=== PATIENT | female | born 1990 | race Caucasian/White ===

== ENCOUNTER → 2021-08-25 | Outpatient (CLI) | payer OTHER ==
[~2021-08-25] MED LIST: ACET500 PO; ALBU90OI INH; AMOX500 PO; Amoxil400 MG/5 M PO; CEPH250A; CEPH500 PO; CIPR500 PO; CODACE30 PO; CYCL10 PO; DAY TIME COLD-237 ML; DIAZ5 PO; DIPATR PO; FAMO40 PO; FERR325 PO; HYDACE25S PR; IBUP400 PO; IBUP600 PO; IBUP800; IBUP800 PO; MEDICAL MARIJUANA; MULVITMINE PO; NAPR500 PO; ONDA4 PO; ONDA4ODT MM; OXYACE5T PO; PENVK500 PO; PHENA100 PO; PROACE100 PO; PROCODE120 PO; PROM25 PO; PSEU120ER PO; Permethrin60 GM TOP; RXOXYACE PO; RXPROACE PO; SERT50 PO; TOBR.3OPSO OP; TRAM50 PO; Zofran8 MG PO; [UNRECOGNIZED DRUG - OTHER]
[2021-08-26 15:12] LABS: HPV 16 Negative (Negative); HPV 18 Negative (Negative); HPV OTHER HR TYPES Negative (Negative)
== END | disposition home or self-care (01) ==
LOC: LAB SHORT 14:52
PROVIDERS: Obstetrics & Gynecology
DX: Z12.4 Encounter for screening for malignant neoplasm of cervix (principal)
CPT/HCPCS: 87624; G0123

== ENCOUNTER → 2022-06-11 | Outpatient (CLI) | payer OTHER ==
[2022-06-11 18:01] LABS: BASOPHILS ABSOLUTE AUTO 0.05 K/mm3 (0.00-0.23); BASOPHILS PERCENT AUTO 1 % (0-2); EOSINOPHILS ABSOLUTE AUTO 0.11 K/mm3 (0.00-0.68); EOSINOPHILS PERCENT AUTO 1 % (0-6); Hematocrit 38.7 % (33.0-51.0); Hemoglobin 13.2 g/dL (11.5-16.0); IMMATURE GRAN ABSOLUTE AUTO 0.04 K/mm3 (0.00-0.10); IMMATURE GRAN PERCENT AUTO 0 % (0-1); LYMPHOCYTES ABSOLUTE AUTO 1.67 K/mm3 (0.84-5.20); LYMPHOCYTES PERCENT AUTO 18 % (21-46); MONOCYTES ABSOLUTE AUTO 0.63 K/mm3 (0.16-1.47); MONOCYTES PERCENT AUTO 7 % (4-13); Mean Corpuscular HGB 31.2 pg (26.0-34.0); Mean Corpuscular HGB Conc 34.1 g/dL (31.5-36.5); Mean Corpuscular Volume 92 fL (80-100); Mean Platelet Volume 9.2 fL (9.1-12.4); NEUTROPHILS ABSOLUTE AUTO 6.72 K/mm3 (1.96-9.15); NEUTROPHILS PERCENT AUTO 73 % (41-73); Platelet Count 317 K/mm3 (150-400); RDW Coefficient Variation 11.9 % (11.7-14.2); RDW Standard Deviation 39.8 fL (35.1-46.3); Red Blood Cell Count 4.23 M/mm3 (3.80-5.20); White Blood Cell Count 9.22 K/mm3 (4.00-11.30)
[2022-06-11 18:04] LABS: Bun/Creatinine Ratio 15.5 (12.0-20.0); Creatinine, Blood 0.71 mg/dL (0.40-1.00); Potassium, Blood 3.4 mmol/L (3.5-5.5)
== END | disposition home or self-care (01) ==
LOC: LAB SHORT 17:56
PROVIDERS: Physician Assistant Surgical
DX: R55 Syncope and collapse (principal)
CPT/HCPCS: 80048; 85025

== ENCOUNTER 2022-09-25 13:42 | Emergency (ER) | payer SELFPAY ==
[~2022-09-25] VITALS: Ht 162.6 cm; Wt 68.0 kg
[2022-09-25] MEDS ORDERED: PRENATAL TABLE1 EAC2 PO (14:19)
[2022-09-25 14:49] LABS: Influenza A, PCR NEGATIVE (NEGATIVE); Influenza B, PCR NEGATIVE (NEGATIVE); Resp Syncytial Virus, PCR NEGATIVE (NEGATIVE); SARS-Cov-2 (COVID-19) PCR, MMC NEGATIVE (NEGATIVE)
[2022-09-25] MEDS ORDERED: ALBU90OI INH ×2 (15:19→15:49)
[2022-09-25] MEDS ORDERED: Prednisone20 MG PO ×2 (15:19→15:49)
== END 2022-09-25 15:35 | disposition home or self-care (01) ==
LOC: ER 13:42
PROVIDERS: Physician Assistant
DX: O99.512 Diseases of the respiratory system complicating pregnancy, second trimester (principal); O99.332 Smoking (tobacco) complicating pregnancy, second trimester; J98.01 Acute bronchospasm; F17.200 Nicotine dependence, unspecified, uncomplicated; Z3A.24 24 weeks gestation of pregnancy; Z88.5 Allergy status to narcotic agent; Z88.2 Allergy status to sulfonamides; Z20.822 Contact with and (suspected) exposure to COVID-19
CPT/HCPCS: 0241U; 94640; 94664; 99283-25; J7512

== ENCOUNTER 2023-01-02 19:42 | Inpatient (IN) | payer SELFPAY ==
[2023-01-02] VITALS (7 sets, daily range): BP systolic 110–135; BP diastolic 59–76
[~2023-01-02] VITALS: Ht 165.1 cm; Wt 76.4 kg
[~2023-01-02 19:42] MED LIST changes: +PRENATAL TABLE1 EAC2 PO; +Prednisone20 MG PO
[2023-01-02] MEDS ORDERED: ASPI81CH PO (20:27)
[2023-01-02] MEDS ORDERED: FERSU300 PO (20:27)
[2023-01-02 20:28] LABS: BASOPHILS ABSOLUTE AUTO 0.03 K/mm3 (0.00-0.23); BASOPHILS PERCENT AUTO 0 % (0-2); EOSINOPHILS ABSOLUTE AUTO 0.07 K/mm3 (0.00-0.68); EOSINOPHILS PERCENT AUTO 1 % (0-6); Hematocrit 34.9 % (33.0-51.0); Hemoglobin 11.9 g/dL (11.5-16.0); IMMATURE GRAN ABSOLUTE AUTO 0.04 K/mm3 (0.00-0.10); IMMATURE GRAN PERCENT AUTO 1 % (0-1); LYMPHOCYTES ABSOLUTE AUTO 1.75 K/mm3 (0.84-5.20); LYMPHOCYTES PERCENT AUTO 22 % (21-46); MONOCYTES ABSOLUTE AUTO 0.81 K/mm3 (0.16-1.47); MONOCYTES PERCENT AUTO 10 % (4-13); Mean Corpuscular HGB 31.1 pg (26.0-34.0); Mean Corpuscular HGB Conc 34.1 g/dL (31.5-36.5); Mean Corpuscular Volume 91 fL (80-100); Mean Platelet Volume 9.6 fL (9.1-12.4); NEUTROPHILS ABSOLUTE AUTO 5.39 K/mm3 (1.96-9.15); NEUTROPHILS PERCENT AUTO 67 % (41-73); Platelet Count 315 K/mm3 (150-400); RDW Coefficient Variation 12.4 % (11.7-14.2); RDW Standard Deviation 40.9 fL (35.1-46.3); Red Blood Cell Count 3.83 M/mm3 (3.80-5.20); White Blood Cell Count 8.09 K/mm3 (4.00-11.30)
[2023-01-02 23:23] LABS: Protein, Urine Random 421.5 mg/dL (0.0-11.9); Protein/Creat Ratio, Ur Random 1.3
[2023-01-03] VITALS (36 sets, daily range): BP systolic 107–146; BP diastolic 60–97
[2023-01-04] VITALS (11 sets, daily range): BP systolic 107–139; BP diastolic 61–78
[2023-01-04 05:38] LABS: BASOPHILS ABSOLUTE AUTO 0.04 K/mm3 (0.00-0.23); BASOPHILS PERCENT AUTO 0 % (0-2); EOSINOPHILS ABSOLUTE AUTO 0.03 K/mm3 (0.00-0.68); EOSINOPHILS PERCENT AUTO 0 % (0-6); Hematocrit 29.2 % (33.0-51.0); Hemoglobin 10.2 g/dL (11.5-16.0); IMMATURE GRAN ABSOLUTE AUTO 0.08 K/mm3 (0.00-0.10); IMMATURE GRAN PERCENT AUTO 1 % (0-1); LYMPHOCYTES PERCENT AUTO 8 % (21-46); MONOCYTES ABSOLUTE AUTO 0.96 K/mm3 (0.16-1.47); MONOCYTES PERCENT AUTO 7 % (4-13); Mean Corpuscular HGB 31.8 pg (26.0-34.0); Mean Corpuscular HGB Conc 34.9 g/dL (31.5-36.5); Mean Corpuscular Volume 91 fL (80-100); Mean Platelet Volume 9.6 fL (9.1-12.4); NEUTROPHILS ABSOLUTE AUTO 12.01 K/mm3 (1.96-9.15); NEUTROPHILS PERCENT AUTO 84 % (41-73); Platelet Count 252 K/mm3 (150-400); RDW Coefficient Variation 12.2 % (11.7-14.2); RDW Standard Deviation 40.6 fL (35.1-46.3); Red Blood Cell Count 3.21 M/mm3 (3.80-5.20); White Blood Cell Count 14.22 K/mm3 (4.00-11.30)
[2023-01-04] MEDS ORDERED: IBU800 M1 PO (09:59)
[2023-01-04] MEDS ORDERED: Colace100 MG PO (09:59)
--- NOTE | 2023-01-04 23:58 | NUR ---
01/04/23 @ 0170: PRINTED DISCHARGE INSTRUCTIONS, REVIEWED WITH PATIENT AND , ANSWERED ADDITONAL QUESTIONS AND CONCERNS, DISCHARGE TO HOME TO CARE OF .
== END 2023-01-04 23:35 | disposition home or self-care (01) | DRG 807 ==
LOC: BC 19:42 → OBS 19:42 → BC 19:58
PROVIDERS: ADMIT Obstetrics & Gynecology
PROC: 10E0XZZ Delivery of Products of Conception, External Approach (ICD-10-PCS; principal; 2023-01-03)
PROC: 0KQM0ZZ Repair Perineum Muscle, Open Approach (ICD-10-PCS; 2023-01-03)
PROC: 10907ZC Drainage of Amniotic Fluid, Therapeutic from Products of Conception, Via Natural or Artificial Opening (ICD-10-PCS; 2023-01-03)
PROC: 3E0R3BZ Introduction of Anesthetic Agent into Spinal Canal, Percutaneous Approach (ICD-10-PCS; 2023-01-03)
PROC: 00HU33Z Insertion of Infusion Device into Spinal Canal, Percutaneous Approach (ICD-10-PCS; 2023-01-03)
DX: O99.324 Drug use complicating childbirth (principal); Z37.0 Single live birth; O99.334 Smoking (tobacco) complicating childbirth; F15.90 Other stimulant use, unspecified, uncomplicated; F17.210 Nicotine dependence, cigarettes, uncomplicated; Z87.442 Personal history of urinary calculi; Z88.2 Allergy status to sulfonamides; O70.1 Second degree perineal laceration during delivery; Z3A.39 39 weeks gestation of pregnancy; O69.1XX0 Labor and delivery complicated by cord around neck, with compression, not applicable or unspecified; Z79.82 Long term (current) use of aspirin; Z79.899 Other long term (current) drug therapy
CPT/HCPCS: 36415; 51702; 82570; 84156; 85025; 86850; 86900; 86901; A9270; J1885; J2210; J2270; J2405; J2590; J3010; J7120